=== PATIENT | female | born 1970 | race Two or more races ===

== ENCOUNTER 2020-04-12 07:15 | Inpatient (IN) | payer OTHER ==
[~2020-04-12] VITALS: Ht 154.9 cm; Wt 71.2 kg
[2020-04-19] MEDS ORDERED: KETOROLAC TROME10 MG (10:04)
[2020-04-19] MEDS ORDERED: AZITHROMYCIN250 MG (10:04)
== END 2020-04-21 11:34 | disposition home or self-care (01) | DRG 743 ==
LOC: O/R 04-19 05:55 → SURH 04-19 07:00 → OB/GYN 04-19 14:19
PROVIDERS: ADMIT Obstetrics & Gynecology; ATTEND Obstetrics & Gynecology
PROC: 0UT20ZZ Resection of Bilateral Ovaries, Open Approach (ICD-10-PCS; 2020-04-19)
PROC: 0UB70ZZ Excision of Bilateral Fallopian Tubes, Open Approach (ICD-10-PCS; 2020-04-19)
PROC: 0UT90ZL Resection of Uterus, Supracervical, Open Approach (ICD-10-PCS; principal; 2020-04-19 07:00)
DX: D25.1 Intramural leiomyoma of uterus (principal); N84.0 Polyp of corpus uteri; N83.02 Follicular cyst of left ovary; N83.01 Follicular cyst of right ovary

== ENCOUNTER 2020-11-09 10:16 | Outpatient (CLI) | payer OTHER ==
[~2020-11-09 10:16] MED LIST: AZITHROMYCIN250 MG; KETOROLAC TROME10 MG
== END 2020-11-09 10:19 | disposition home or self-care (01) ==
LOC: SONOGRAMA 10:16
PROVIDERS: ATTEND Pathology Anatomic Pathology & Clinical Pathology
DX: E04.1 Nontoxic single thyroid nodule (principal)